=== PATIENT | male | born 1990 | race Caucasian/White ===

== ENCOUNTER 2018-07-28 15:29 | Emergency (ER) | payer MEDICAID ==
[~2018-07-28] VITALS: Ht 177.8 cm; Wt 95.3 kg
[2018-07-28 15:38] VITALS: Ht 177.8 cm; Wt 95.3 kg
[2018-07-28 16:21] VITALS: BP 124/64
== END 2018-07-28 16:21 | disposition home or self-care (01) ==
LOC: ED 15:29
DX: J06.9 Acute upper respiratory infection, unspecified (principal)